=== PATIENT | female | born 1970 | race Caucasian/White ===

== ENCOUNTER 2019-03-18 03:14 | Inpatient (IN) | payer OTHER, SELFPAY ==
[2019-03-18] VITALS (12 sets, daily range): BP systolic 94–135; BP diastolic 47–86; PULSE 78–102; RESP 14–20; TEMP 36.7–37.2; O2SAT 92–100; BMI 27.4
--- NOTE | 2019-03-18 | CT_ITS ---
We are attempting to reach an attending provider to discuss findings. An addendum with communication details will be sent when the communication is complete. HISTORY: RT SIDED ABD PAIN, N/V/D EXAMINATION: CT Abdomen And Pelvis W/ Contrast TECHNIQUE: Helically acquired images were obtained of the abdomen and pelvis following IV contrast. A radiation dose optimization technique was used for this scan. IV Contrast dosage and agent: 100 Isovue 300 Oral contrast: Yes COMPARISON: None FINDINGS: GI tract: Normal transit of CT barium from the small bowel into the colon. The proximal appendix fills with barium and the more distal appendix is dilated measuring up to 1.1 cm in diameter. Periappendiceal and perisigmoid inflammatory change with soft tissue streaking together with mild mural thickening of the lower sigmoid. Both sigmoid colitis and appendicitis [id number] is suggested. No abscess or colonic perforation seen. Small free fluid posterior to the cecum. No pneumoperitoneum. Lower thorax: No pleural effusion or pericardial effusion. Small hiatal hernia. Normal liver, spleen, pancreas, gallbladder, and biliary system. Both kidneys are normal in position. Bilateral renal opacification without evidence of hydronephrosis, pyelonephritis, or suspicious renal lesion. Bilateral small renal cortical cysts. The adrenal glands are not enlarged. Normal abdominal aorta and IVC. No retroperitoneal lymph node enlargement. Pelvis: Enlarged, fibroid uterus. Small free fluid posterior to the cecum. Lower sigmoid mural thickening with pericolonic inflammatory change. Adjacent periappendiceal inflammatory change with dilated appendix is also suggested. Bones: No acute osseous abnormality. Ventral abdominal Wall: Tiny fat-containing umbilical hernia. CT/Abdomen/Pelvis W IV Cont ONLY IMPRESSION: 1. Lower sigmoid mural thickening with pericolonic inflammation. Adjacent dilated appendix with periappendiceal inflammatory change is also suggested. 2. Small free fluid posterior to the cecum. No abscess or pneumoperitoneum. 3. Enlarged, fibroid uterus. Individualized dose optimization techniques were used for this CT. at 0620 Reported and signed by: Gamaliel Blair MD Electronically Signed: Gamaliel Blair, at 6:19 EDT Tel , Service support ,
[2019-03-18] MEDS: Ondansetron 4 MG/2 ML Vial IV (03:39)
[2019-03-18] MEDS: 0.9% Normal Saline 1,000 ML 1000 ML IV (03:39)
[2019-03-18] MEDS: Morphine 4 MG/ML Syringe IV ×3 (03:39→07:19)
[2019-03-18 03:48] LABS: Absolute Lymphocyte Count 0.59 X10^3/uL (0.83-4.51); Basophil# 0.02 X10^3/uL; Basophil% 0.2 % (0-1); Eosinophil# 0.07 X10^3/uL; Eosinophils% 0.6 % (0-5); Hematocrit 42.8 % (37-47); Hemoglobin 14.2 g/dL (12.0-15.0); Lymphocyte # 0.59 X10^3/ul (4.0); Lymphocyte % 5.3 % (19-41); Mean Corp Hgb Conc 33.2 g/dL (32-36); Mean Corpuscular Hgb 29.9 pg (27.0-32.0); Mean Corpuscular Volume 90.1 fL (81-99); Mean Platelet Vol. 9.1 fl (6.2-12.0); Monocyte# 0.57 X10^3/uL; Monocyte% 5.1 % (0-10); NRBC Flagged by Analyzer 0 % (0-5); Neutrophil # 9.92 X10^3/uL (2.7-7.7); Neutrophil % 88.4 % (47-70); POSITIVE DIFFERENTIAL YES; POSITIVE MORPHOLOGY YES; Platelet Count 313 K/mm3 (150-450); RBC Distribution Width CV 12.3 % (11.6-14.6); Red Blood Count 4.75 M/mm3 (4.2-5.4); White Blood Count 11.2 K/mm3 (4.4-11.0)
[2019-03-18 04:04] LABS: ALB/GLOB Ratio 1.1 RATIO (0.9-2.4); AST(SGOT) 22 U/L (15-37); Alanine Aminotransfer ALT/SGPT 43 U/L (13-56); Albumin, Serum 3.8 g/dL (3.2-5.0); Alkaline Phosphatase 80 U/L (45-117); Anion Gap 12 (5-15); BUN 16 mg/dL (7-18); BUN/Creat Ratio 15.8 RATIO (10-20); Calcium,Total 9.3 mg/dL (8.5-10.1); Chloride 103 mmol/L (98-107); Creatinine, Serum 1.01 mg/dL (0.55-1.02); EST Glomerular Filtration Rate 62 mL/min (>60); Est Glom Filt Rate - Afr Amer 75 mL/min (>60); Estimated Creatinine Clearance 58.18 ml/min; Globulin 3.5 g/dL (2.2-4.2); Glucose 160 mg/dL (74-106); Lipase 72 U/L (73-393); Potassium 3.8 mmol/L (3.5-5.1); Protein, Total 7.3 g/dL (6.4-8.2); Sodium Level 139 mmol/L (136-145)
[2019-03-18 04:22] LABS: Differential Comment SCANNED; Differential Indicated SCAN CRITERIA MET
[2019-03-18 04:37] LABS: Bacteria 0 SEEN /hpf (None Seen); Mucous, Urine 0 SEEN /hpf (<or=2+)
[2019-03-18 04:44] LABS: Color, Urine Yellow (Yellow); Glucose, Dipstick Normal (Normal); Leukocyte Esterase-Dipstick 100 /ul (Negative); Nitrite-Dipstick Negative (Negative); Occult Blood-Urine Negative /ul (Negative); Protein-Dipstick 15 mg/dl (Negative); Urine Bilirubin Dipstick Negative (Negative); Urine Clarity Sl. Cloudy (Clear); Urine Urobilinogen Normal (Normal); Urine pH 6.5 (5.0 - 8.0)
[2019-03-18 05:00] LABS: Ketone-Dipstick 150 mg/dl (Negative)
[2019-03-18 05:01] LABS: Amorphous Sediment 1+; Red Blood Cells-Urine 0-5 SEEN /hpf (0-5); Squamous Epithelial Cells - UA 0-5 SEEN /hpf (5-10); White Blood Cells 0-5 SEEN /hpf (0-5)
--- NOTE | 2019-03-18 06:21 | ED.DCSUM_ITS ---
- ER Visit Summary Date of Service: 03/18/19 Chief Complaint: Abdominal pain History of Present Illness: The patient is a 48 F who presents with abdominal pain. This initially began about 2 days ago. It is progressed since that time and become severe since last night. It is sharp. It initially began in the right upper abdomen but now radiates to the lower abdomen right lower quadrant and suprapubically. She also reports nausea and has had 3-4 episodes of emesis late last night and early this morning. She can planes of 2 days of severe diarrhea. No fevers. No chest pain shortness of breath. She does complain of a headache as well. No history of prior similar symptoms. She denies history of abdominal surgeries. Physical Examination: Afebrile vitals normal Patient appears uncomfortable in pain holding her knees up Moist mucous membranes Heart regular rate and rhythm Lungs are clear Abdomen soft nondistended she does have diffuse nonfocal tenderness but no guarding no rebound Test Results: Labs notable for white count 11.2, glucose 160. Urinalysis shows 150 ketones. There is 100 leukocyte esterase but 0-[address] of the abdomen shows lower sigmoid mural thickening and pericolonic inflammation there is no adjacent dilated appendix with periappendiceal inflammatory change. Emergency Department Course and Treatment: Patient was given IV morphine and Zofran with moderate improvement of pain. CT findings as above consistent with acute appendicitis as well as sigmoid colitis which may be reactive in nature. Although CT was read as barium contrast positioning from small bowel to colon the patient has not received any oral contrast agent recently. It is unclear what this is related to. All these findings were discussed with the surgeon on- call which was Dr. Guzmán. He agreed with IV Zosyn and general surgery will evaluate the patient this morning. Treatment Plan: [] Disposition: Pending surgical consult Impression: Appendicitis Sigmoid colitis This note was generated with [employer] dictation software. It may contain incorrect words, spelling, and punctuation that were not noted in review of the chart prior to signing ED Disposition - Plan for ED Patient: Referrals: [facility] Doctor,Out of [Primary Care Provider] -
--- NOTE | 2019-03-18 07:17 | NURSING ---
DR SPENCER IN ROOM
--- NOTE | 2019-03-18 07:30 | NURSING ---
SURGERY LAP JUMA SPENCER
--- NOTE | 2019-03-18 07:33 | HP.PCM_ITS ---
Problem List (1) Acute appendicitis Status: Acute Qualifiers: Acute appendicitis type: with generalized peritonitis Appendicitis gangrene presence: unspecified whether gangrene present Appendicitis perforation presence: unspecified whether perforation present Appendicitis abscess presence: without abscess Qualified Code(s): K35.20 - Acute appendicitis with generalized peritonitis, without abscess History of Present Illness Date of Admission: 03/18/19 The patient is a 48 F who presents with abdominal pain. This initially began about 2 days ago. It is progressed since that time and become severe since last night. It is sharp. It initially began in the right upper abdomen but now radiates to the lower abdomen right lower quadrant and suprapubically. She also reports nausea and has had 3-4 episodes of emesis late last night and early this morning. She can planes of 2 days of severe diarrhea. No fevers. No chest pain shortness of breath. She does complain of a headache as well. No history of prior similar symptoms. She denies history of abdominal surgeries. CT scan findings: IMPRESSION: 1. Lower sigmoid mural thickening with pericolonic inflammation. Adjacent dilated appendix with periappendiceal inflammatory change is also suggested. 2. Small free fluid posterior to the cecum. No abscess or pneumoperitoneum. 3. Enlarged, fibroid uterus. Individualized dose optimization techniques were used for this CT. Past Medical History Allergies codeine Adverse Reaction (Verified 03/18/19 03:16) Nausea/Vom/Diarrhea Home Medications: Ambulatory Orders Medication Instructions Recorded NK 03/18/19 Smoking Status: Never smoker - *Family History Maternal History Items: No pertinent history Review of Systems Constitutional: Reports: Anorexia Cardiovascular: Denies: Chest Pain, Chest Pressure, Chest Tightness, Palpitations Respiratory: Denies: Cough, Hemoptysis, Shortness of breath at rest, Shortness of breath upon exertion, Wheezing Gastrointestinal: Reports: Abdominal Pain - Most severe pain is localized in the right lower quadrant down near the groin area she has generalized abdominal pain with peritoneal irritation., Diarrhea, Nausea, Vomiting Genitourinary: Denies: Dysuria, Frequency, Hematuria, Urgency Musculoskeletal: Denies: Joint Pain Neurological: Reports: Headaches VTE Information - Inpt Only VTE Present on Admission: No VTE Mechan Device Prophylaxis: SCD's VTE Pharm Prophylaxis ordered?: No Reason prophylaxis not ordered:: Treatment Not Indicated Patient Problems: Active and Suspected Problems Acute appendicitis (Acute) - Physical Exam General: Alert, Oriented x3 Lungs: Clear to auscultation Cardiovascular: Regular rate, Regular Rhythm, No murmurs Abdomen: Tender - Tenderness is mostly located in the right lower quadrant she has generalized irritation to palpation. She does have peritoneal irritation. Her abdomen is soft. Vital Signs Temp Pulse Resp BP Pulse Ox 98.9 F 102 H 18 135/67 H 98 03/18/19 03:16 03/18/19 06:30 03/18/19 06:30 03/18/19 07:04 03/18/19 06:30 Oxygen Delivery Method Room Air Weight: 159 lb 13.362 oz Body Mass Index (BMI) 27.4 Laboratory Tests Past 24 Hrs 03/18/19 03/18/19 03/18/19 03:37 03:37 04:23 WBC 11.2 H RBC 4.75 Hgb 14.2 Hct 42.8 MCV 90.1 MCH 29.9 MCHC 33.2 RDW Std Deviation 41.0 RDW Coeff of Sharyn 12.3 Plt Count 313 MPV 9.1 Immature Gran % (Auto) 0.400 Neut % (Auto) 88.4 H Lymph % (Auto) 5.3 L [place] % (Auto) 5.1 Eos % (Auto) 0.6 Baso % (Auto) 0.2 Absolute Neuts (auto) Not Reportable Absolute Lymphs (auto) 0.59 L Absolute Nucleated RBC 0.00 Nucleated RBC % 0 Differential Comment SCANNED Sodium 139 Potassium 3.8 Chloride 103 Carbon Dioxide 24.0 Anion Gap 12 BUN 16 Creatinine 1.01 Estim Creat Clear Calc 58.18 Est GFR (MDRD) Af Amer 75 Est GFR (MDRD) Non-Af 62 BUN/Creatinine Ratio 15.8 Glucose 160 H Calcium 9.3 Total Bilirubin 0.50 AST 22 ALT 43 Alkaline Phosphatase 80 Total Protein 7.3 Albumin 3.8 Globulin 3.5 Albumin/Globulin Ratio 1.1 Lipase 72 L Urine Color Yellow Urine Clarity Sl. Cloudy Urine pH 6.5 Ur Specific [place] 1.020 Urine Protein 15 H Urine Glucose (UA) Normal Urine Ketones 150 H Urine Occult Blood Negative Urine Nitrite Negative Urine Bilirubin Negative Urine Urobilinogen Normal Ur Leukocyte Esterase 100 H Urine RBC 0-5 SEEN Urine WBC 0-5 SEEN Ur Squamous Epith Cells 0-5 SEEN Amorphous Sediment 1+ Urine Bacteria 0 SEEN Urine Mucus 0 SEEN Assessment/Plan All Active Problems Acute appendicitis (Acute) Plan is to perform a laparoscopic appendectomy on the patient. Risks benefits to include bleeding possible infection possible injury to surrounding structures possible need for drain possible need to do this open have all been reviewed with the patient the patient agrees to proceed.
--- NOTE | 2019-03-18 08:17 | NURSING ---
Report given to José Antonio in AC for OR.
--- NOTE | 2019-03-18 13:30 | APP_PTH ---
PATIENT: AGUSTÍN MOTTA LOC: MS3 U#:[id number] AGE/SX: 48/F ROOM: MS315 RE03/18/[address]: Dr. Daron Guzmán MD : 1970 BED: 1 DIS: 03/22/2019 SPEC #: [id number] RECD: 03/19/19 07:54 STATUS: MANAN REQ #: [id number] CANDE: 03/18/19 13:[address]: Daron Guzmán DEPT: SURGICAL PATHOLOGY RECD BY: Sriram Lewis ENTERED: 03/19/19 11:04 SP TYPE: APPENDIX OTHR DR: Out of [facility] Doctor Tissues: Appendix, NOS Procedures: Surgery Specimen Level III HEADER OPERATION: Laparoscopic appendectomy PRE-OP DIAGNOSIS: Acute appendicitis TISSUE SUBMITTED: Appendix MICROSCOPIC DIAGNOSIS Appendix, appendectomy: Acute necrotizing appendicitis. Acute serositis. AM:isabelle 03/20/19 MICROSCOPIC DESCRIPTION Slides are reviewed. GROSS DESCRIPTION Received is one container labeled with the patient's name and designated appendix. The specimen consists of an appendix measuring 6.5 cm in length and up to 1 cm in diameter. The attached periappendiceal adipose tissue measures up to 1.5 cm in width. The serosa is congested and covered with orellana, purulent exudate. A focal area suspicious for rupture is noted. The mucosa is congested and hemorrhagic. No fecalith is identified. The lumen is filled with fecal material. Rebar Bender sections are submitted in one cassette. / SJ:isabelle 03/19/19 TC:2 CPT: 81348
--- NOTE | 2019-03-18 14:00 | OP.PCM_ITS ---
Problem List (1) Acute appendicitis Status: Acute Qualifiers: Acute appendicitis type: with generalized peritonitis Appendicitis gangrene presence: with gangrene Appendicitis perforation presence: with perforation Appendicitis abscess presence: with abscess Qualified Code(s): K35.21 - Acute appendicitis with generalized peritonitis, with abscess; K35.891 - Other acute appendicitis without perforation, with gangrene Report of Operation Date of Procedure: 03/18/19 Pre-Operative Diagnosis: Acute appendicitis Post-Operative Diagnosis: Acute gangrenous perforated appendicitis with abscess Surgery/Procedure Performed:: Laparoscopic appendectomy Type of Anesthesia:: General Anesthesiologist: Eric Park Specimen's removed: Appendix Drains: # 15 AVRIL Estimated Blood Loss (mL): < 25 cc Fluids Replaced: 1 L LR Description of Procedure: Patient was brought into the operating room. Placed in the supine position. Under excellent general trach intubation Atkinson catheter was placed the abdomen was sterilely prepped draped in usual fashion. Local was injected infra umbilically dissection was carried down to the fascia. Fascia was grasped with [place]. Varies needle was placed inside the abdomen the abdomen was insufflated to 15 torr. A 10/12 trocar was placed without difficulty. Suprapubic #5 trocar was placed in the left lower quadrant #5 trocar was placed both of these under direct visualization without injury to underlying structures. Patient was placed in the head down rotated to the left. Patient was noted to have a acute perforated appendicitis with the appendix resting up against the sigmoid colon in the pelvis purulent fluid and abscess cavity was identified. I stayed away from this initially went to the base of the appendix created a window in the mesial appendix and transected the base of the appendix with a 45 linear cutter. I then brought the appendix out of the pelvis and came across the mesoappendix with the Enseal. I had excellent hemostasis. I placed a specimen specimen bag and delivered through the umbilical port without difficulty. I spent the rest of the time irrigating the pelvis out with a liter and a half of warm irrigation. I sent cultures for aerobic and anaerobic and Gram stain from the purulent appendix. I placed a #5 trocar in the right side under direct visualization. I then placed a 15 round Conrado-Pitts drain through this area directing it down into the pelvis I sutured it in place with a 3-0 nylon. I remove the trochars under direct visualization. Good hemostasis was noted. Closed the fascia of the umbilical port with a [id number] stitch of 0 Vicryl. Skin incisions were closed with some particular stitches. Steri-Strips were applied sterile dressings were applied and the patient tolerated the procedure well. This was not colitis this was clearly a ruptured perforated appendix with abscess the surrounding structures including both tubes and ovaries sigmoid colon and the uterus itself were very swollen and very erythematous when I was done there was no purulence left in the abdomen the drain was going down to the pelvis along the right colic gutter. - Admit VTE Documentation VTE Present on Admission: No VTE Mechan Device Prophylaxis: SCD's VTE Pharm Prophylaxis ordered?: No Reason prophylaxis not ordered:: Treatment Not Indicated
[2019-03-18] MEDS: Bupivacaine Mpf 0.5% 30 ML VIAL (14:08)
[2019-03-18] MEDS: HYDROmorphone 1 MG/ML Syringe IV (21:32)
[2019-03-18] MEDS: 0.9% NaCl Peripheral Flush Adult/Peds IV (21:32)
[2019-03-18] MEDS: Lactated Ringers 1,000 ML 150 ML IV (21:49)
[2019-03-19] VITALS (8 sets, daily range): BP systolic 88–108; BP diastolic 51–66; PULSE 60–111; RESP 14–18; TEMP 36.5–37; O2SAT 93–100
[2019-03-19] MEDS: HYDROmorphone 1 MG/ML Syringe IV ×7 (04:32→23:16)
[2019-03-19] MEDS: 0.9% NaCl Peripheral Flush Adult/Peds IV ×5 (04:36→16:52)
[2019-03-19] MEDS: Lactated Ringers 1,000 ML 150 ML IV ×3 (04:45→18:57)
[2019-03-19] MEDS: DiphenhydrAMINE 25 MG Capsule PO ×2 (12:16→20:11)
[2019-03-19 12:29] LABS: Absolute Lymphocyte Count 1.45 X10^3/uL (0.83-4.51); Absolute Neutrophil Count 8.4 X10^3/uL (2.0-7.7); Basophil# 0.02 X10^3/uL; Basophil% 0.2 % (0-1); Eosinophil# 0.01 X10^3/uL; Eosinophils% 0.1 % (0-5); Hematocrit 36.2 % (37-47); Hemoglobin 11.4 g/dL (12.0-15.0); Lymphocyte # 1.45 X10^3/ul (4.0); Mean Corp Hgb Conc 31.5 g/dL (32-36); Mean Corpuscular Hgb 29.2 pg (27.0-32.0); Mean Corpuscular Volume 92.6 fL (81-99); Mean Platelet Vol. 9.2 fl (6.2-12.0); Monocyte# 0.47 X10^3/uL; Monocyte% 4.5 % (0-10); NRBC Flagged by Analyzer 0 % (0-5); Neutrophil # 8.39 X10^3/uL (2.7-7.7); Neutrophil % 80.9 % (47-70); Platelet Count 263 K/mm3 (150-450); RBC Distribution Width CV 12.8 % (11.6-14.6); RBC Distribution Width SD 43.8 fl (35.1-43.9); Red Blood Count 3.91 M/mm3 (4.2-5.4); White Blood Count 10.4 K/mm3 (4.4-11.0)
--- NOTE | 2019-03-19 12:43 | PCM.PN.SRG ---
Patient Problems: Active and Suspected Problems Acute appendicitis (Acute) Subjective: Patient feels sore today. No flatus and no bowel movements yet. AVRIL drain has purulent material coming out of it. Objective: Appropriately sore. Incisions are clean and dry. 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 Gram negative miguel Laboratory Tests Past 24 Hrs 03/19/19 03/19/19 12:00 12:00 WBC 10.4 RBC 3.91 L Hgb 11.4 L Hct 36.2 L MCV 92.6 MCH 29.2 MCHC 31.5 L RDW Std Deviation 43.8 RDW Coeff of Sharyn 12.8 Plt Count 263 MPV 9.2 Immature Gran % (Auto) 0.300 Neut % (Auto) 80.9 H Lymph % (Auto) 14.0 L [place] % (Auto) 4.5 Eos % (Auto) 0.1 Baso % (Auto) 0.2 Absolute Neuts (auto) 8.4 H Absolute Lymphs (auto) 1.45 Absolute Nucleated RBC 0.00 Nucleated RBC % 0 Sodium Pending Potassium Pending Chloride Pending Carbon Dioxide Pending Anion Gap Pending BUN Pending Creatinine Pending Est GFR (MDRD) Af Amer Pending Est GFR (MDRD) Non-Af Pending BUN/Creatinine Ratio Pending Glucose Pending Calcium Pending Medical Necessity - Tobacco Use Smoking Status: Never smoker Assessment/Plan All Active Problems Acute appendicitis (Acute) Postoperative day #1 Await cultures and sensitivity. White count has come down slightly. Will remain on clear liquids today. Unlikely we are going to get her home anytime soon.
[2019-03-19 12:44] LABS: Anion Gap 2 (5-15); BUN 10 mg/dL (7-18); BUN/Creat Ratio 12.7 RATIO (10-20); Calcium,Total 8.7 mg/dL (8.5-10.1); Chloride 104 mmol/L (98-107); Creatinine, Serum 0.78 mg/dL (0.55-1.02); EST Glomerular Filtration Rate 83 mL/min (>60); Est Glom Filt Rate - Afr Amer 100 mL/min (>60); Estimated Creatinine Clearance 75.34 ml/min; Glucose 95 mg/dL (74-106); Potassium 3.6 mmol/L (3.5-5.1); Sodium Level 134 mmol/L (136-145)
[2019-03-19] MEDS: Fluconazole 100 MG Tablet 200 MG PO (13:05)
--- NOTE | 2019-03-19 20:30 | NURSING ---
Pt pulse ox reading 88% on room air. Pt placed on 1L oxygen via nasal cannula, pulse ox now reading 94%.
[2019-03-20] VITALS (7 sets, daily range): BP systolic 102–126; BP diastolic 59–77; PULSE 86–100; RESP 16–18; TEMP 36.5–37.5; O2SAT 90–98
[2019-03-20] MEDS: Lactated Ringers 1,000 ML 150 ML IV ×2 (01:09→09:09)
[2019-03-20] MEDS: HYDROmorphone 1 MG/ML Syringe IV ×5 (02:20→19:02)
[2019-03-20 07:31] LABS: Anion Gap 7 (5-15); BUN 8 mg/dL (7-18); BUN/Creat Ratio 9.5 RATIO (10-20); Calcium,Total 8.1 mg/dL (8.5-10.1); Chloride 104 mmol/L (98-107); Creatinine, Serum 0.84 mg/dL (0.55-1.02); EST Glomerular Filtration Rate 77 mL/min (>60); Est Glom Filt Rate - Afr Amer 93 mL/min (>60); Estimated Creatinine Clearance 69.96 ml/min; Glucose 88 mg/dL (74-106); Potassium 3.4 mmol/L (3.5-5.1); Sodium Level 140 mmol/L (136-145)
[2019-03-20 07:45] LABS: Absolute Lymphocyte Count 1.31 X10^3/uL (0.83-4.51); Absolute Neutrophil Count 6.6 X10^3/uL (2.0-7.7); Basophil# 0.03 X10^3/uL; Basophil% 0.3 % (0-1); Eosinophil# 0.08 X10^3/uL; Eosinophils% 0.9 % (0-5); Hematocrit 32.9 % (37-47); Hemoglobin 10.4 g/dL (12.0-15.0); Lymphocyte # 1.31 X10^3/ul (4.0); Lymphocyte % 15.3 % (19-41); Mean Corp Hgb Conc 31.6 g/dL (32-36); Mean Corpuscular Hgb 29.8 pg (27.0-32.0); Mean Corpuscular Volume 94.3 fL (81-99); Mean Platelet Vol. 9.5 fl (6.2-12.0); Monocyte# 0.49 X10^3/uL; Monocyte% 5.7 % (0-10); NRBC Flagged by Analyzer 0 % (0-5); Neutrophil # 6.63 X10^3/uL (2.7-7.7); Neutrophil % 77.3 % (47-70); Platelet Count 273 K/mm3 (150-450); RBC Distribution Width CV 12.9 % (11.6-14.6); RBC Distribution Width SD 44.8 fl (35.1-43.9); Red Blood Count 3.49 M/mm3 (4.2-5.4); White Blood Count 8.6 K/mm3 (4.4-11.0)
[2019-03-20] MEDS: DiphenhydrAMINE 25 MG Capsule PO (08:04)
--- NOTE | 2019-03-20 08:19 | PCM.PN.SRG ---
Patient Problems: Active and Suspected Problems Acute appendicitis (Acute) Subjective: Patient evaluated resting comfortably in the chair. Patient notes slight improvement with abdominal pain. She notes most of her pain is in the RLQ pain. She is tolerating clear liquids well. Pruritus has improved. - Physical Exam General: Alert, Oriented x3, Cooperative Abdomen: Soft, Hypoactive Bowel Sounds, Distended - slightly, Tender - generalized moreso in the RLQ, - - Incisions c/d/i. No erythema or infection noted. AVRIL drain intact, purulent material noted in the bulb. 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 Laboratory Tests Past 24 Hrs 03/19/19 03/19/19 03/20/19 12:00 12:00 07:00 WBC 10.4 8.6 RBC 3.91 L 3.49 L Hgb 11.4 L 10.4 L Hct 36.2 L 32.9 L MCV 92.6 94.3 MCH 29.2 29.8 MCHC 31.5 L 31.6 L RDW Std Deviation 43.8 44.8 H RDW Coeff of Sharyn 12.8 12.9 Plt Count 263 273 MPV 9.2 9.5 Immature Gran % (Auto) 0.300 0.500 Neut % (Auto) 80.9 H 77.3 H Lymph % (Auto) 14.0 L 15.3 L [place] % (Auto) 4.5 5.7 Eos % (Auto) 0.1 0.9 Baso % (Auto) 0.2 0.3 Absolute Neuts (auto) 8.4 H 6.6 Absolute Lymphs (auto) 1.45 1.31 Absolute Nucleated RBC 0.00 0.00 Nucleated RBC % 0 0 Sodium 134 L Potassium 3.6 Chloride 104 Carbon Dioxide 28.0 Anion Gap 2 L BUN 10 Creatinine 0.78 Estim Creat Clear Calc 75.34 Est GFR (MDRD) Af Amer 100 Est GFR (MDRD) Non-Af 83 BUN/Creatinine Ratio 12.7 Glucose 95 Calcium 8.7 03/20/19 07:00 WBC RBC Hgb Hct MCV MCH MCHC RDW Std Deviation RDW Coeff of Sharyn Plt Count MPV Immature Gran % (Auto) Neut % (Auto) Lymph % (Auto) [place] % (Auto) Eos % (Auto) Baso % (Auto) Absolute Neuts (auto) Absolute Lymphs (auto) Absolute Nucleated RBC Nucleated RBC % Sodium 140 Potassium 3.4 L Chloride 104 Carbon Dioxide 29.0 Anion Gap 7 BUN 8 Creatinine 0.84 Estim Creat Clear Calc 69.96 Est GFR (MDRD) Af Amer 93 Est GFR (MDRD) Non-Af 77 BUN/Creatinine Ratio 9.5 L Glucose 88 Calcium 8.1 L Medical Necessity - Tobacco Use Smoking Status: Never smoker Assessment/Plan All Active Problems Acute appendicitis (Acute) I am following this patient in conjunction with Dr. Guzmán S/p laparoscopic appendectomy Micro pending Continue IV antibiotics Ambulate in the hallways today Continue clear liquids. Possible advance to full at lunch Keep AVRIL drain We will continue to follow this patient Code Visit Inpatient E&M: 83023 [facility] L[facility] - No charge
[2019-03-20] MEDS: 0.9% NaCl Peripheral Flush Adult/Peds IV ×3 (09:10→19:02)
--- NOTE | 2019-03-20 12:59 | CASEMGMT ---
RN CM Assessment Presentation: Appendectomy: ruptured appendix. Intro role of CM and purpose of RN CM assessment to patient in room. Demographics, PCP and Pharmacy verified. Patient is awake alert and able to participate in assessment. Presently pt continues to have significant pain and difficulty with ambulation. She is from [facility] and plans to stay with family @ campground near [place] for a few days prior to returning home. Pt plans to f/u with Dr. Guzmán. PCP: Art Scales Specialists: Dr. Guzmán Preferred Pharmacy: [facility], preferred. Insurance: MMO Prescription Benefit: yes LNOK: Daniel Rasmussen Living Arrangements: Lives independently with . Pt works, drives and had no care needs prior to admission. Anticipate will need assist for a few days prior to discharge due to pain and decreased mobility. Transportation: drives DME: none HHC: none Patient DC goals: Home DC PLAN: Home with outpt f/u. Jany LIRIANO RN ACM
--- NOTE | 2019-03-21 | NURSING ---
Pt noted to be 88% on RA, no respiratory distress noted, pt denies SOB. 2L oxygen placed on pt. Will continue to monitor.
[2019-03-21] MEDS: HYDROmorphone 1 MG/ML Syringe IV ×2 (00:47→06:17)
[2019-03-21 03:30] VITALS: BP 102/65; PULSE 88; RESP 17; TEMP 36.9; O2SAT 98
[2019-03-21] MEDS: Lactated Ringers 1,000 ML 75 ML IV (03:34)
[2019-03-21 10:41] VITALS: BP 123/71; PULSE 106; RESP 16; TEMP 36.9; O2SAT 96
[2019-03-21] MEDS: oxyCODONE 5 MG Tablet 10 MG PO ×3 (10:59→19:45)
--- NOTE | 2019-03-21 11:01 | PCM.PN.SRG ---
Patient Problems: Active and Suspected Problems Acute appendicitis (Acute) Subjective: Pain is slowly improving. She is continuing to pass flatus. AVRIL drain is clearing up. Objective: Dressings are dry. Abdomen is still slightly distended pain is improving but still appropriate. - Physical Exam Vital Signs Temp Pulse Resp BP Pulse Ox 98.5 F 106 H 16 123/71 H 96 03/21/19 10:41 03/21/19 10:41 03/21/19 10:41 03/21/19 10:41 03/21/19 10:41 Oxygen Flow Rate (L/min) 2 Oxygen Delivery Method Room Air Weight: 159 lb 13.362 oz Body Mass Index (BMI) 27.4 Intake and Output for Last 24 Hours 03/19/19 03/20/19 03/21/19 23:59 23:59 23:59 Intake Total 4102 / 4951 5054 / 5901 1462 / 1462 Output Total 2760 / 3290 860 / 870 20 / 20 Balance 1342 / 1661 4194 / 5031 1442 / 1442 Microbiology Past 72 Hours 03/18/19 15:04 Gram Stain - Final Wound Drainage - Other Wound Culture - Final Escherichia coli Klebsiella pneumoniae sp pneum Anaerobic Culture - Preliminary Checking for anaerobes, further studies to follow. Medical Necessity - Tobacco Use Smoking Status: Never smoker Assessment/Plan All Active Problems Acute appendicitis (Acute) I think 1 more day of IV antibiotics is appropriate. Or more likely remove the drain tomorrow and discharge her sometime tomorrow.
[2019-03-21 15:23] VITALS: BP 128/81; PULSE 89; RESP 16; TEMP 37.1; O2SAT 94
[2019-03-21] MEDS: 0.9% NaCl Peripheral Flush Adult/Peds IV (15:28)
[2019-03-21 19:45] VITALS: BP 137/83; PULSE 86; RESP 16; TEMP 36.9; O2SAT 95
--- NOTE | 2019-03-21 21:45 | NURSING ---
Patient up and ambulating in hallway at this time.
[2019-03-22] MEDS: oxyCODONE 5 MG Tablet 10 MG PO ×3 (00:48→10:08)
[2019-03-22 04:12] VITALS: BP 137/74; PULSE 89; RESP 16; TEMP 36.8; O2SAT 95
[2019-03-22] MEDS: Ibuprofen 400 MG Tablet 800 MG PO (05:02)
[2019-03-22 07:38] VITALS: O2SAT 93
[2019-03-22 08:41] VITALS: BP 139/73; PULSE 73; RESP 18; TEMP 37; O2SAT 98
--- NOTE | 2019-03-22 09:54 | DCINST_ITS ---
Discharge Diet: Light diet - advance as tolerated - if you have questions about your diet instructions, please talk to you doctor. Discharge Activity: May Not Drive - for 3-5 days or while taking narcotic pain meds. May shower in (days): 1 Call your doctor if your incision/area has: Continuous Slow Oozing, Sudden Increased Bleeding, Increased Pain/ Swelling, Increased Redness, Foul Smelling Discharge Call your doctor if you observe: Fever of 101 or Higher Suture Line Care: Avoid Pulling/Pushing, Avoid Pinching/Bending Additional Dressing/Incision Instructions:: Keep dressing clean and dry. Change or remove dressing in 2 days. Leave steri strips for 1 week. May protect with a gauze bandaid. Medications to take at Discharge NK 03/18/19 Allergies/Adverse Reactions: Allergies codeine Adverse Reaction (Verified 03/18/19 03:16) Nausea/Vom/Diarrhea Primary Care Physician: Curtis Morocho,Out of [Primary Care Provider] - Test Results: Test results from this visit will be discussed in further detail at your follow- up appointment, if applicable. Please Follow Up With: Daron Guzmán MD - [phone] When: Call to make a follow up appointment with your doctor in 1 week.
--- NOTE | 2019-03-22 09:59 | PCM.PN.SRG ---
Patient Problems: Active and Suspected Problems Acute appendicitis (Acute) Subjective: Patient feels hungry. Patient has now grown out B fragilis Objective: AVRIL drain removed today. Incisions are clean and dry belly is soft - Physical Exam Vital Signs Temp Pulse Resp BP Pulse Ox 98.6 F 73 18 139/73 H 98 03/22/19 08:41 03/22/19 08:41 03/22/19 08:41 03/22/19 08:41 03/22/19 08:41 Oxygen Flow Rate (L/min) 2 Oxygen Delivery Method Room Air Weight: 159 lb 13.362 oz Body Mass Index (BMI) 27.4 Intake and Output for Last 24 Hours 03/20/19 03/21/19 03/22/19 23:59 23:59 23:59 Intake Total 5054 / 5901 3849 / 3849 Output Total 860 / 870 60 / 60 10 / Balance 4194 / 5031 3789 / 3789 -10 / -10 Microbiology Past 72 Hours 03/18/19 15:04 Gram Stain - Final Wound Drainage - Other Wound Culture - Final Escherichia coli Klebsiella pneumoniae sp pneum Anaerobic Culture - Preliminary Gram positive miguel Anaerobic cocci Presumptive B. fragilis group Medical Necessity - Tobacco Use Smoking Status: Never smoker Assessment/Plan All Active Problems Acute appendicitis (Acute) Ready for discharge. We will send her home on p.o. Levaquin, p.o. Flagyl, p.o. Percocet, and 800 mg ibuprofen 3 times daily as needed for pain
[2019-03-22 13:00] VITALS: BP 125/75; PULSE 83; RESP 18; TEMP 36.7; O2SAT 98
--- NOTE | 2019-03-24 08:41 | PCM.DC.SUM ---
Discharge Date and Diagnosis Date of Admission: 03/18/19 Date of Discharge: 03/22/19 - Primary Discharge Diagnosis Acute gangrenous perforated appendicitis with abscess Hospital Course and Treatment Operations: appendectomy Summary of Care Provided: The patient is a 48 year old F who presented with severe abdominal pain. CT of the ab/pel demonstrated appendicitis. Dr. Guzmán performed a laparoscopic appendectomy on 03/18/19. Patient tolerated the procedure well. Patient had an uneventful hospitalization. Upon discharge, patient had minimal incisional discomfort. She was tolerating her diet. Culture demonstrated E. Coli and Klebsiella pneumoniae. Anaerobic culture showed gram positive miguel, anaerobic cocci, and presumptive B. Fragilis group. She is urinating well. She has passed flatus. She denies nausea, vomiting. - Physical Exam General: Alert, Oriented x3, Cooperative Abdomen: Bowel Sounds Present, Soft, Distended - slightly, Tender - slightly generalized, - - Incisions c/d/i. No erythema or infection noted. AVRIL drain removed. Vital Signs Temp Pulse Resp BP Pulse Ox 98.0 F 83 18 125/75 H 98 03/22/19 13:00 03/22/19 13:00 03/22/19 13:00 03/22/19 13:00 03/22/19 13:00 Oxygen Flow Rate (L/min) 2 Oxygen Delivery Method Room Air Weight: 159 lb 13.362 oz Body Mass Index (BMI) 27.4 Intake and Output for Last 24 Hours 03/22/19 03/23/19 03/24/19 23:59 23:59 23:59 Intake Total 1250 / 1250 Output Total Balance 1240 / 1240 Microbiology Past 72 Hours 03/18/19 15:04 Gram Stain - Final Wound Drainage - Other Wound Culture - Final Escherichia coli Klebsiella pneumoniae sp pneum Anaerobic Culture - Preliminary Gram positive miguel Anaerobic cocci Presumptive B. fragilis group Discharge Diet: Light diet - advance as tolerated - if you have questions about your diet instructions, please talk to you doctor. Discharge Activity: May Not Drive - for 3-5 days or while taking narcotic pain meds. May shower in (days): 1 Call your doctor if your incision/area has: Continuous Slow Oozing, Sudden Increased Bleeding, Increased Pain/ Swelling, Increased Redness, Foul Smelling Discharge Call your doctor if you observe: Fever of 101 or Higher Suture Line Care: Avoid Pulling/Pushing, Avoid Pinching/Bending Additional Dressing/Incision Instructions:: Keep dressing clean and dry. Change or remove dressing in 2 days. Leave steri strips for 1 week. May protect with a gauze bandaid. Home Medications: Medications to take at Discharge Levofloxacin [Levaquin] 500 mg PO DAILY 10 Days #10 tab 03/22/19 Metronidazole [Flagyl] 500 mg PO TID 10 Days #30 tab 03/22/19 Oxycodone HCl/Acetaminophen [Percocet 5/325] 1 - 2 tab PO Q4H PRN PRN 6 Days #30 tab 03/22/19 Following Prescrptions Were Given to Patient: Metronidazole [Flagyl] 500 mg PO TID 10 Days #30 tab Prescription Printed Levofloxacin [Levaquin] 500 mg PO DAILY 10 Days #10 tab Prescription Printed Oxycodone HCl/Acetaminophen [Percocet 5/325] 1 - 2 tab PO Q4H PRN PRN 6 Days #30 tab PRN Reason: Pain Prescription Printed Primary Care Physician: Curtis Morocho,Out of [Primary Care Provider] - Please Follow Up With: Daron Guzmán MD - [phone] When: Call to make a follow up appointment with your doctor in 1 week. Disposition: Home Minutes spent on discharge:: 20 Patient Condition:: Stable Medical Necessity - Tobacco Use Smoking Status: Never smoker Meaningful Use Info Meaningful Use Diagnoses (Choose all that apply): None applicable Code Visit Inpatient E&M: 52704 Disch Hosp - No charge
== END 2019-03-22 12:25 | disposition home or self-care (01) | DRG 340 ==
LOC: ED 04:15 → SDC 07:31 → AC 07:32 → MS3 15:15
PROVIDERS: Physician Assistant; Admitting Provider Surgery; Emergency Provider Emergency Medicine; Visit Provider Surgery
PROC: 0DTJ4ZZ Resection of Appendix, Percutaneous Endoscopic Approach (ICD-10-PCS; CPT 44970; principal; 2019-03-18 13:10)
DX: K35.33 Acute appendicitis with perforation, localized peritonitis, and gangrene, with abscess (principal)
CPT/HCPCS: 36415; 74177; 80048; 80053; 81001; 83690; 85025; 87070; 87075; 87077; 87186; 87205; 88304; 99284; J7030; J7040; J7120; Q9967; A4216; C1760; J2405